=== PATIENT | female | born 1995 | race African-American/Black ===

== ENCOUNTER 2020-07-13 23:08 | Emergency (ER) | payer SELFPAY ==
[2020-07-13] MEDS ORDERED: Ibuprofen 200 MG TAB ONE (23:55)
[2020-07-13] MEDS ORDERED: Acetaminophen 500 MG TAB ONE (23:55)
== END 2020-07-14 00:05 | disposition home or self-care (01) ==
LOC: CSHERS 23:08
DX: R07.89 Other chest pain (principal); I10 Essential (primary) hypertension
CPT/HCPCS: 71045; 93005

== ENCOUNTER 2021-02-23 16:37 | Emergency (ER) | payer MEDICAID, SELFPAY ==
[2021-02-24 07:45] LABS: SARS-CoV-2 PCR by NAA DETECTED (NotDetected)
== END 2021-02-23 20:20 | disposition home or self-care (01) ==
LOC: CSHERS 16:37
DX: U07.1 COVID-19 (principal); I10 Essential (primary) hypertension
CPT/HCPCS: 87804; 99283; U0003; U0005

== ENCOUNTER 2021-02-25 13:31 | Emergency (ER) | payer SELFPAY ==
[2021-02-25] MEDS ORDERED: Ketorolac Tromethamine 30 MG/ML VIAL ONE (16:11)
[2021-02-25] MEDS ORDERED: Ondansetron PF 4 MG/2 ML Vial ONE (16:11)
[2021-02-25 16:48] LABS: BHCG - Serum Negative (NEGATIVE); Pregs Control Background? CLEAR/WHITE (CLR/WHITE); Pregs Control Bar Appear? YES (CONTROL BAR)
[2021-02-25 16:49] LABS: #Monocytes 0.4 10x3/uL (0.0-1.1); #Neutrophils 3.7 10x3/uL (1.5-8.4); %Basophils 0.2 % (0.0-2.0); %Eosinophils 0.2 % (0.0-6.0); %Lymphocytes 10.6 % (18.0-47.0); %Neutrophils 80.6 % (40.0-75.0); Hemoglobin 12.7 g/dL (12.0-15.5); Mean Corpuscular HGB CONC 33.1 g/dL (32.0-36.0); Mean Corpuscular Hemoglobin 29.5 pg (27.0-33.0); Mean Corpuscular Volume 89.1 fl (81.6-98.3); Mean Platelet Volume 9.6 fl (7.4-10.4); Platelet Count 254 10x3/uL (150-450); RBC Distribution Width 12.7 % (11.5-14.5); Red Blood Cell (RBC) Count 4.31 10x6/uL (3.90-5.03); White Blood Cell (WBC) Count 4.6 10x3/uL (3.5-10.5)
[2021-02-25 16:52] LABS: ALT (SGPT) 20 U/L (8-55); AST (SGOT) 23 U/L (5-34); Albumin 4.3 g/dL (3.5-5.0); Alkaline Phosphatase 59 U/L (40-110); Anion Gap 15 mmol/L (10-20); BUN (Urea Nitrogen) 8 mg/dL (7.0-18.7); Bilirubin, Total 0.5 mg/dL (0.2-1.2); Calc. Creatinine Clearance 0 mL/min (70-130); Carbon Dioxide 24 mmol/L (22-29); Chloride 101 mmol/L (98-107); Globulin 3.9 g/dL (2.4-3.5); Glucose 100 mg/dL (70-105); Potassium 3.6 mmol/L (3.5-5.1); Protein, Total 8.2 g/dL (6.0-8.3); Sodium 136 mmol/L (136-145)
== END 2021-02-25 18:44 | disposition home or self-care (01) ==
LOC: CSHERS 13:31
DX: U07.1 COVID-19 (principal); J12.82 Pneumonia due to coronavirus disease 2019; R11.2 Nausea with vomiting, unspecified; I10 Essential (primary) hypertension; Z79.899 Other long term (current) drug therapy
CPT/HCPCS: 71275; 74177; 80053; 83690; 84703; 85025; 96374; J1885; J2405